=== PATIENT | female | born 1935 | race Caucasian/White ===

== ENCOUNTER 2018-09-16 04:36 | Emergency (ER) | payer MEDICARE, BC ==
[~2018-09-16] VITALS: Ht 157.5 cm; Wt 79.4 kg
--- OUTSIDE RECORDS SUMMARY | 2018-09-16 04:39 | XMS REPORT ---
Author Author [facility] Address Unknown Phone Unavailable Care Team Providers Care [employer] Processing Technician Name Role Phone MAN MONTIEL Unavailable Unavailable Problems This patient has no known problems. Allergies, Adverse Reactions, Alerts This patient has no known allergies or adverse reactions. Medications This patient has no known medications. Results Test Description Test Time Test Comments Text Results Atomic Results Result Comments CT ABDOMEN/PELVIS WOW [place] [address] Patient Name: DARIUSZ MCGOWAN MR #: [id number] : 1935 Age/Sex: 82/F Req #: [id number] Adm Physician: Ordered by: MAN MONTIEL MD Report #: [id number] Location: CT Room/Bed: Procedure: [id number] CT/CT ABDOMEN/PELVIS WOW Exam Date: 07/16/17 Exam Time: 914 REPORT STATUS: Signed PROCEDURE: CT ABDOMEN T PELVIS W/WO CONTRAST TECHNIQUE: The abdomen and pelvis were scanned utilizing a multidetector helical scanner from the diaphragm to the lesser trochanter before and after the IV administration of 100 cc Isovue 370 and the oral demonstration of water. Imaging was performed in the prone position per CT urogram protocol. Coronal and sagittal multiplanar reformations were obtained. COMPARISON: None. INDICATIONS: GROSS HEMATURIA FINDINGS: LOWER THORAX: Trace subsegmental atelectasis in the dependent portions of the lingula and right middle lobe. Partially visualized large hiatal hernia containing the majority of the stomach as well as part of the distal transverse colon. HEPATOBILIARY: No focal hepatic lesions. No biliary ductal dilatation. Multiple gallstones without wall thickening or adjacent inflammatory change. SPLEEN: No splenomegaly. PANCREAS: The body and tail lie within the above described large hiatal hernia. No focal mass lesion or ductal dilatation. ADRENALS: 3.4 cm left adrenal nodule has average internal attenuation -10 Hounsfield units on precontrast imaging compatible with a lipid rich adenoma. No right adrenal nodule. KIDNEYS/URETERS: Large bilateral peripelvic renal cysts occupy the majority of the renal hannah, all of which have an average internal attenuation less than 20 Hounsfield units. Excretory phase images show no hydronephrosis, with normal caliber calyces and infundibula interdigitated between the large peripelvic cysts. Bilateral renal calculi are identified. The largest measures 1.4 cm in dimension in the right lower pole which is felt to represent a cluster of smaller calcifications. A single left renal calculus measures 4 mm in the upper pole. No ureteral or bladder c alculi. Subcentimeter hypoattenuating lesions within the bilateral renal parenchyma are too small to further characterize though likely to represent small cysts. PELVIC ORGANS/BLADDER: The urinary bladder is unremarkable. The uterus is anteflexed and appears normal. No adnexal mass. PERITONEUM / RETROPERITONEUM: No ascites or pneumoperitoneum. LYMPH NODES: No pelvic sidewall, retroperitoneal, or mesenteric lymphadenopathy. VESSELS: Atherosclerotic calcification of the abdominal aorta, branch vessels, and iliac arterial systems without aneurysmal dilatation. GI TRACT: The large bowel shows no evidence of distention or wall thickening. There are multiple diverticula scattered along the descending and sigmoid colon without evidence of diverticulitis. The appendix is normal. No small bowel dilatation to suggest obstruction. BONES AND SOFT TISSUES: No focal soft tissue abnormalities. The bones are diffusely osteopenic. Bilateral L4 pars interarticularis defects with grade 2 anterolisthesis over L5. Bilateral L5 pars interarticularis defects with grade 1 anterolisthesis over S1. IMPRESSION: Bilateral nonobstructing renal calculi, with a multilobulated stone versus cluster of smaller stones measuring 1.4 cm in aggregate dimension in the right lower pole. Large bilateral peripelvic simple renal cysts. Large complex hiatal hernia containing stomach, pancreas, and distal transverse colon. Cholelithiasis. Large bowel diverticulosis without evidence of diverticulitis. Benign lipid rich left adrenal adenoma. Dictated by: Ubaldo Gutiérrez M.D. on 07/16/2017 at 13:05 Electronically approved by: Ubaldo Gutiérrez M.D. on 07/16/2017 at 13:05 Dictated By: UBALDO GUTIÉRREZ MD [id number] Transcribed By: GONZÁLEZ on 07/16/17 130 COPY TO: MAN MONTIEL MD
[2018-09-16] MEDS ORDERED: XARELTO15 MG PO (04:48)
[2018-09-16] MEDS ORDERED: DIOVAN160 MG PO (04:48)
[2018-09-16 05:27] LABS: CLARITY,URINE CLOUDY (CLEAR); COLOR,URINE YELLOW (YELLOW); KETONES,URINE NEGATIVE (NEGATIVE); LEUKOCYTE ESTERASE ,URINE 2+ (NEGATIVE); NITRITE,URINE POSITIVE (NEGATIVE); PROTEIN,URINE DIPSTICK TRACE (NEGATIVE)
[2018-09-16 05:28] LABS: BACTERIA,URINE MANY /HPF; BILIRUBIN,URINE NEGATIVE (NEGATIVE); EPITHELIAL CELLS,URINE FEW /LPF; RBC,URINE 0-5 /HPF (0-5); URINE UROBILINOGEN 0.2 mg/dL (0.2 - 1)
[2018-09-16 06:32] VITALS: BP 162/87
--- NOTE | 2018-09-16 06:48 | Diagnostic Imaging Report ---
EXAM: ABDOMEN ACUTE SERIES W/PA CXR DATE: 09/16/2018 4:52 AM Time stamp on exam: 5:37 AM INDICATION: Rectal pressure, constipation, history of large hiatal hernia COMPARISON: None FINDINGS: LINES/TUBES: None BOWEL PATTERN: No evidence for obstruction. SOFT TISSUES: No abnormal calcifications. No mass effect. LUNGS: The lungs are clear. There are minimal areas of bibasilar atelectasis adjacent to a large air-fluid containing hiatal hernia in the retrocardiac space BONES: Degenerative changes of the lower thoracic and lumbar spine with levorotoscoliosis. IMPRESSION: Large sliding hiatal hernia with minimal bibasilar atelectasis Signed by: Dr. Kenney Griffiths M.D. on 09/16/2018 6:45 AM
== END 2018-09-16 06:44 | disposition home or self-care (01) ==
LOC: ER 04:36
DX: K62.89 Other specified diseases of anus and rectum (principal); K59.00 Constipation, unspecified; N30.90 Cystitis, unspecified without hematuria; I10 Essential (primary) hypertension; Z86.718 Personal history of other venous thrombosis and embolism
CPT/HCPCS: 74022; 81001; 87086; 87186; 93005; 99283

== ENCOUNTER 2019-03-06 08:54 | Emergency (ER) | payer MEDICARE, BC ==
[~2019-03-06] VITALS: Ht 157.5 cm; Wt 102.1 kg
[~2019-03-06 08:54] MED LIST: DIOVAN160 MG PO; XARELTO15 MG PO
--- NOTE | 2019-03-06 09:37 | NUR ---
URINE CX OBTAINED AND INTO RAO TUBE AND LABELLED AND IN REFRIG.
== END 2019-03-06 09:20 | disposition home or self-care (01) ==
LOC: FSED 08:54
DX: R30.0 Dysuria (principal); N30.91 Cystitis, unspecified with hematuria; I10 Essential (primary) hypertension; Z86.718 Personal history of other venous thrombosis and embolism
CPT/HCPCS: 81003; 87086; 87186; 99283

== ENCOUNTER 2019-03-29 08:21 | Emergency (ER) | payer BC, MEDICARE, OTHER ==
[~2019-03-29] VITALS: Ht 157.5 cm; Wt 79.4 kg
--- NOTE | 2019-03-29 09:32 | NUR ---
ORDERED URINE CULTURE TO ACCOMPANY URINALYSIS. PT GAVE A SCANT AMOUNT OF URINE AND IT WAS NOT ENOUGH TO SEND FOR CULTURE. ASKED PATIENT IF SHE COULD GIVE MORE URINE AND OFFERED HER WATER. PT REFUSED.
[2019-03-29 09:49] VITALS: BP 153/78
== END 2019-03-29 09:53 | disposition home or self-care (01) ==
LOC: FSED 08:21
DX: R30.0 Dysuria (principal); N30.01 Acute cystitis with hematuria; I10 Essential (primary) hypertension; Z86.718 Personal history of other venous thrombosis and embolism
CPT/HCPCS: 80048; 81003; 85025; 99283

== ENCOUNTER 2019-03-30 17:26 | Emergency (ER) | payer MEDICARE ==
[~2019-03-30] VITALS: Ht 157.5 cm; Wt 79.4 kg
--- NOTE | 2019-03-30 19:44 | NUR ---
REPORT TO LAMONT MOREIRA ALL QUESTIONS ANSWERED
== END 2019-03-30 20:28 | disposition home or self-care (01) ==
LOC: FSED 17:26
DX: R42 Dizziness and giddiness (principal); F41.1 Generalized anxiety disorder; I10 Essential (primary) hypertension
CPT/HCPCS: 99283

== ENCOUNTER 2019-09-21 08:02 | Emergency (ER) | payer MEDICARE, BC ==
[~2019-09-21] VITALS: Ht 157.5 cm; Wt 79.4 kg
== END 2019-09-21 09:37 | disposition home or self-care (01) ==
LOC: FSED 08:02
DX: R30.0 Dysuria (principal); R10.2 Pelvic and perineal pain; N30.00 Acute cystitis without hematuria; I10 Essential (primary) hypertension; J98.4 Other disorders of lung; Z86.718 Personal history of other venous thrombosis and embolism
CPT/HCPCS: 81003; 99283

== ENCOUNTER 2020-01-21 08:01 | Emergency (ER) | payer MEDICARE, BC ==
[~2020-01-21] VITALS: Ht 157.5 cm; Wt 71.2 kg
[2020-01-21 08:59] VITALS: BP 157/75
== END 2020-01-21 09:36 | disposition home or self-care (01) ==
LOC: FSED 08:01
DX: R30.0 Dysuria (principal); N30.90 Cystitis, unspecified without hematuria; I10 Essential (primary) hypertension
CPT/HCPCS: 80053; 81003; 85025; 99283